=== PATIENT | male | born 1940 | race Caucasian/White ===

== ENCOUNTER 2018-01-04 01:43 | Emergency (ER) | payer OTHER, MEDICARE ==
--- NOTE | 2018-01-04 01:44 | EDPHY ---
H & P Time Seen by Provider: 01/04/18 01:44 HPI/ROS: HPI CHIEF COMPLAINT: Itchy Rash HISTORY OF PRESENT ILLNESS: Patient is a 77-year-old male, he presents emergency room with a rash x7 days. Reports that it is very itchy. It has progressively gotten worse over the past 7 days. It is mainly truncal across his chest and abdomen and back. However notice some on his legs in his inner thighs. He reports that it or rubs mainly with pressure points so when he sitting in a ruptured in the back of his legs and but. When he tends to scratch his skin sometimes a ruptured after scratching or gets worse. It is very pruritic. He denies any fever. He states he went to his chiropractor about 10 days ago and had a panel blood work done for routine blood work and noticed that his testosterone level was low he started taking supplemental testosterone this is the only new medication he has been taking. He denies fever. Denies blisters. Denies pain. But has pruritus. He decided come the emergency room at 2 o'clock in the morning after 7 days of this as the rash is progressively getting worse and more itchy. He cannot stop itching and is causing him to not sleep. He does know any contacts are sick contacts He has not seen his primary care doctor for this. Past Medical History: Enlarged prostate, prostatitis Past Surgical History: Shoulder surgery, bony spur surgery Social History: Denies drugs alcohol tobacco. Family History: Noncontributory ROS REVIEW OF SYSTEMS: A comprehensive 10 point review of systems is otherwise negative aside from elements mentioned in the history of present illness. Exam Constitutional appears well nontoxic no acute distress triage nursing summary reviewed, vital signs reviewed, awake/alert. Eyes normal conjunctivae and sclera, EOMI, PERRLA. HENT no mucosal lesions normal inspection, atraumatic, moist mucus membranes, no epistaxis, neck supple/ no meningismus, no raccoon eyes. Respiratory clear to auscultation bilaterally, normal breath sounds, no respiratory distress, no wheezing. Cardiovascular rate normal, regular rhythm, no murmur, no edema, distal pulses normal. Gastrointestinal soft, non-tender, no rebound, no guarding, normal bowel sounds, no distension, no pulsatile mass. Genitourinary no CVA tenderness. Musculoskeletal no midline vertebral tenderness, full range of motion, no calf swelling, no tenderness of extremities, no meningismus, good pulses, neurovascularly intact. Skin there is a diffuse sandpaper type rash. Mainly on his chest and abdomen. These do mikaela. They are rough like sandpaper. It spares palms and soles. There is no mucosal lesions. They are very itchy. There is no weeping or pus. Or drainage. No bullae. No petechiae. Neurologic awake, alert and oriented x 3, AAOx3, moves all 4 extremities equally, motor intact, sensory intact, CN II-XII intact, normal cerebellar, normal vision, normal speech. Psychiatric normal mood/affect. Heme/Lymph/Immune no lymphadenopathy. Differential Diagnosis: Includes but is not limited to in a particular order viral exanthem, dermatitis, vasculitis, scabies, allergic reaction, dermatitis Medical Decision Making: Plan for this patient will check basic blood work, IV established with IV Decadron dose given, as well as IV Benadryl. Recommend close follow-up with his primary care doctor. Additionally discussed return precautions with me understands return if he develops mucosal lesions, fever, they appear infected, order getting worse. Re-evaluation: 0305: Re-examination at this time patient received Decadron here this feeling much better. Rash is improved after steroids. Itching is improved. He is nontoxic-appearing blood work is reassuring with no high white count. He is afebrile. He feels better would like to go home. Recommend close follow-up with his primary care doctor. Additionally prednisone for 5 days and Benadryl. Return precautions discussed with him he understands. This is a nontoxic-appearing rash. It is pruritic. His most likely an exanthem versus dermatitis. Return precautions discussed. Source: Patient - Medical/Surgical History Hx Asthma: No Hx Chronic Respiratory Disease: No Hx Diabetes: No Hx Cardiac Disease: No Hx Renal Disease: No Hx Cirrhosis: No Hx Alcoholism: No Hx HIV/AIDS: No Hx Splenectomy or Spleen Trauma: No Other PMH: PE 6 mos ago - Social History Smoking Status: Never smoked Constitutional: Initial Vital Signs Temperature (C) 36.5 C 01/04/18 01:49 Heart Rate 81 01/04/18 01:49 Respiratory Rate 16 01/04/18 01:49 Blood Pressure 169/91 H 01/04/18 01:49 O2 Sat (%) 95 04/20/18 01:49 O2 Delivery Mode Room Air Allergies/Adverse Reactions: Sulfa (Sulfonamide Antibiotics) Allergy (Severe, Verified 12/04/13 10:39) TURNED BLUE Penicillins Allergy (Mild, Verified 12/04/13 10:39) Rash GREEN PEAS Allergy (Severe, Uncoded 12/04/13 10:39) LIPS SWELLING PEANUTS Allergy (Severe, Uncoded 12/04/13 10:39) Anaphylaxis/HIVES ON INSIDE OF THROAT COD FISH Allergy (Intermediate, Uncoded 12/04/13 10:39) Vomiting EGGS Allergy (Intermediate, Uncoded 12/04/13 10:39) VOMITING/HIVES Home Medications: Medication Instructions Recorded Natoconase 01/04/18 diphenhydrAMINE [Benadryl 25 MG 25 mg PO BID #14 tab 01/04/18 (*)] predniSONE 60 mg PO DAILY #15 tab 01/04/18 Medical Decision Making - Data Points Laboratory Results: Laboratory Results 01/04/18 02:05 01/04/18 02:05 01/04/18 01/04/18 02:05 02:05 WBC 8.01 10^3/uL 10^3/uL (3.80-9.50) RBC 6.01 10^6/uL 10^6/uL (4.40-6.38) Hgb 17.9 g/dL H g/dL (13.7-17.5) Hct 53.5 % H % (40.0-51.0) MCV 89.0 fL fL (81.5-99.8) MCH 29.8 pg pg (27.9-34.1) MCHC 33.5 g/dL g/dL (32.4-36.7) RDW 13.9 % % (11.5-15.2) Plt Count 169 10^3/uL 10^3/uL (150-400) MPV 10.0 fL fL (8.7-11.7) Neut % (Auto) 70.9 % % (39.3-74.2) Lymph % (Auto) 18.6 % % (15.0-45.0) [place] % (Auto) 8.9 % % (4.5-13.0) Eos % (Auto) 1.2 % % (0.6-7.6) Baso % (Auto) 0.2 % L % (0.3-1.7) Nucleat RBC Rel Count 0.0 % % (0.0-0.2) Absolute Neuts (auto) 5.67 10^3/uL 10^3/uL (1.70-6.50) Absolute Lymphs (auto) 1.49 10^3/uL 10^3/uL (1.00-3.00) Absolute Monos (auto) 0.71 10^3/uL 10^3/uL (0.30-0.80) Absolute Eos (auto) 0.10 10^3/uL 10^3/uL (0.03-0.40) Absolute Basos (auto) 0.02 10^3/uL 10^3/uL (0.02-0.10) Absolute Nucleated RBC 0.00 10^3/uL 10^3/uL (0-0.01) Immature Gran % 0.2 % % (0.0-1.1) Immature Gran # 0.02 10^3/uL 10^3/uL (0.00-0.10) ESR 4 MM/HR MM/HR (0-20) Sodium 144 mEq/L mEq/L (135-145) Potassium 4.4 mEq/L mEq/L (3.5-5.2) Chloride 105 mEq/L mEq/L (97-110) Carbon Dioxide 27 mEq/l mEq/l (22-31) Anion Gap 12 mEq/L mEq/L (8-16) BUN 24 mg/dL H mg/dL (7-23) Creatinine 1.2 mg/dL mg/dL (0.7-1.3) Estimated GFR 59 Glucose 102 mg/dL H mg/dL (70-100) Calcium 8.9 mg/dL mg/dL (8.5-10.4) Magnesium 2.1 mg/dL mg/dL (1.6-2.3) Total Bilirubin 0.8 mg/dL mg/dL (0.1-1.4) Conjugated Bilirubin 0.5 mg/dL mg/dL (0.0-0.5) Unconjugated Bilirubin 0.3 mg/dL mg/dL (0.0-1.1) AST 22 IU/L IU/L (17-59) ALT 45 IU/L IU/L (21-72) Alkaline Phosphatase 57 IU/L IU/L (38-126) C-Reactive Protein 5.3 mg/L mg/L (<10.0) Total Protein 7.2 g/dL g/dL (6.3-8.2) Albumin 4.2 g/dL g/dL (3.5-5.0) Medications Given: Discontinued Medications Dexamethasone (Decadron Injection) 10 mg IVP EDNOW ONE Stop: 01/04/18 02:05 Last Admin: 01/04/18 02:11 Dose: 10 mg Diphenhydramine HCl (Benadryl Injection) 25 mg IVP EDNOW ONE Stop: 01/04/18 02:05 Last Admin: 01/04/18 02:10 Dose: 25 mg Departure - Departure Disposition: Home, Routine, Self-Care Clinical Impression: Rash Condition: Good Instructions: Acute Rash (ED) Additional Instructions: 1. Follow up with her primary care doctor. 2. Prednisone and Benadryl prescribed. 3. Return emergency room if he develops fever or the rash is getting worse. 4. Stop taking the testosterone supplement as you started this and then broke out into a rash that maybe this medication. 5. Follow up with her primary care doctor about your low testosterone. Referrals: Juana Rodriguez MD [Primary Care Provider] - As per Instructions Prescriptions: diphenhydrAMINE [Benadryl 25 MG (*)] 25 mg PO BID #14 tab predniSONE 60 mg PO DAILY #15 tab
[2018-01-04] MEDS ORDERED: DEXAMETHASONE 10 MG/ML VIAL IVP ONE (02:04)
[2018-01-04 02:14] LABS: PLATELET COUNT 169 10^3/uL (150-400)
[2018-01-04 03:19] VITALS: BP 134/70
== END 2018-01-04 03:19 | disposition home or self-care (01) ==
DX: R21 Rash and other nonspecific skin eruption (principal)
CPT/HCPCS: 96374; 96375; 99284; J1100; J1200

== ENCOUNTER → 2018-10-28 | Outpatient (CLI) | payer OTHER, MEDICARE | LOC: BMCIMAGING 13:46 | PROVIDERS: ATTEND Family Medicine | DX: I82.4Z1 Acute embolism and thrombosis of unspecified deep veins of right distal lower extremity (principal) ==